=== PATIENT | female | born 1995 | race Caucasian/White ===

== ENCOUNTER 2020-11-12 18:15 | Inpatient (IN) | payer OTHER ==
[2020-11-12] MEDS ORDERED: CITRIC ACID/SODIUM CITRATE 30 ML UNIT-DOSE CUP PO ONE (19:09)
[2020-11-12 19:11] VITALS: BMI 28.3
[2020-11-12] MEDS ORDERED: ELECTROLYTE-148 SOLN 1,000 ML IV SCH (19:15)
[2020-11-12] MEDS ORDERED: MAGNESIUM 4GM/H20 - 4 GM/100 ML IVPB IVPB SCH (19:15)
[2020-11-12] MEDS ORDERED: MAGNESIUM SULFATE 20GM/500ML - 20 GM/500 ML INFUS.BAG ONE (19:48)
[2020-11-12 20:25] LABS: BASO % 2.1 % (0-2.0); EOS % 0.5 % (0-4.5); HEMATOCRIT 28.5 % (32.4-45.2); HEMOGLOBIN 9.2 GM/dL (10.7-15.3); LYMPH % 16.3 % (8-40); MCH 22.1 pg (25.7-33.7); MCHC 32.1 g/dl (32.0-36.0); MEAN CELL VOLUME 68.7 fl (80-96); MONO % 5.3 % (3.8-10.2); NEUT % 75.8 % (42.8-82.8); PLATELET COUNT 186 10^3/uL (134-434); RBC 4.15 M/mm3 (3.60-5.2); RDW 19.6 % (11.6-15.6); WHITE BLOOD COUNT 8.2 K/mm3 (4.0-10.0)
[2020-11-12] MEDS ORDERED: MAGNESIUM SULFATE 20GM/500ML - 20 GM/500 ML INFUS.BAG IV SCH (20:30)
[2020-11-12 20:44] LABS: CALCIUM 8.7 mg/dL (8.5-10.1)
[2020-11-12 20:45] LABS: BLOOD UREA NITROGEN 7.2 mg/dL (7-18); INR 0.83 (0.83-1.09); PROTHROMBIN TIME (PATIENT) 10.2 SEC (9.7-13.0)
[2020-11-12 20:48] LABS: ACTIVATED PTT 24.6 SECONDS (25.2-36.5); CREATININE 0.6 mg/dL (0.55-1.3)
[2020-11-12] MEDS ORDERED: IBUPROFEN 600 MG TABLET (FP) PO PRN ×2 (21:11→23:58)
[2020-11-12] MEDS ORDERED: ONDANSETRON 4 MG/2 ML VIAL IVPUSH PRN (21:11)
[2020-11-12] MEDS ORDERED: morphine SULFATE/PF 1 MG/2 ML (2cc Syringe - QUVA) EP ONE (21:11)
[2020-11-12] MEDS ORDERED: ACETAMINOPHEN 325 MG TABLET (FP) PO PRN ×2 (21:11→23:58)
[2020-11-12] MEDS ORDERED: SUCCINYLCHOLINE CHLORIDE 200 MG/10 ML SYRINGE ONE (21:16)
[2020-11-12] MEDS ORDERED: ceFAZolin SODIUM 1 GM VIAL ONE (21:16)
[2020-11-12] MEDS ORDERED: OXYTOCIN 10 UNIT/ML 10ML MDV ONE (21:16)
[2020-11-12] MEDS ORDERED: morphine SULFATE/Preservative Free 0.5 MG/ML (1cc Syringe) ONE (21:16)
[2020-11-12] MEDS ORDERED: PROPOFOL 20 ML ONE (21:17)
[2020-11-12] MEDS ORDERED: ONDANSETRON 4 MG/2 ML VIAL ONE (23:03)
[2020-11-12] MEDS ORDERED: KETOROLAC TROMETHAMINE 30 MG/1 ML VIAL ONE (23:17)
[2020-11-12] MEDS ORDERED: OXYTOCIN 20 UNITS in 0.9% NS 20 UNIT/1,000 ML INFUS.BAG IV SCH (23:45)
[2020-11-12] MEDS ORDERED: ONDANSETRON 4 MG/2 ML VIAL IVPB PRN (23:58)
[2020-11-12] MEDS ORDERED: IBUPROFEN 800 MG/8 ML IJ IVPB PRN (23:58)
[2020-11-12] MEDS ORDERED: oxyCODONE HCL 5 MG TABLET PO PRN (23:58)
[2020-11-12] MEDS ORDERED: ACETAMINOPHEN 1000 MG/100 ML VIAL (NON FORMULARY) IVPB PRN (23:58)
[2020-11-12] MEDS ORDERED: SIMETHICONE 80 MG TAB.CHEW (FP) PO PRN (23:58)
[2020-11-12] MEDS ORDERED: SENNOSIDES/DOCUSATE COMBO (SENNA PLUS) TABLET (UD) PO PRN (23:58)
[2020-11-13] MEDS ORDERED: MAGNESIUM SULFATE 20GM/500ML - 20 GM/500 ML INFUS.BAG IV SCH (00:15)
[2020-11-13] MEDS ORDERED: CEFAZOLIN 2 GM in DEXTROSE 5%-WATER - 50 ML IVPB SCH (02:00)
[2020-11-13] MEDS ORDERED: CEFAZOLIN 2 GM/D5W 2 GM/50 ML ML IVPB ONE (02:33)
[2020-11-13] MEDS ORDERED: MAGNESIUM SULFATE 20GM/500ML - 20 GM/500 ML INFUS.BAG ONE (05:19)
[2020-11-13] MEDS: CEFAZOLIN 2 GM in DEXTROSE 5%-WATER 100 ML IVPB SCH ×3 (10:15→20:23)
[2020-11-13] MEDS ORDERED: OXYTOCIN 20 UNITS in 0.9% NS 20 UNIT/1,000 ML INFUS.BAG IV ONE (14:32)
[2020-11-13] MEDS ORDERED: IBUPROFEN 800 MG/8 ML IJ IVPB ONE (19:27)
[2020-11-14] MEDS ORDERED: BISACODYL 10 MG SUPP.RECT RC PRN
[2020-11-14 06:52] LABS: BASO % 0.8 % (0-2.0); EOS % 0.8 % (0-4.5); HEMATOCRIT 25.6 % (32.4-45.2); HEMOGLOBIN 8.2 GM/dL (10.7-15.3); LYMPH % 20.6 % (8-40); MCH 22.1 pg (25.7-33.7); MCHC 31.9 g/dl (32.0-36.0); MEAN CELL VOLUME 69.2 fl (80-96); MEAN PLT VOLUME 10.6 fl (7.5-11.1); MONO % 5.5 % (3.8-10.2); NEUT % 72.3 % (42.8-82.8); PLATELET COUNT 213 10^3/uL (134-434); RDW 19.7 % (11.6-15.6); WHITE BLOOD COUNT 11.3 K/mm3 (4.0-10.0)
[2020-11-15] MEDS ORDERED: IBUPROFEN 600 MG TABLET (FP) PO PRN ×2 (09:43→09:59)
[2020-11-15 11:54] VITALS: BP 125/74; PULSE 76; TEMP 98.4
== END 2020-11-15 19:00 | disposition home or self-care (01) | DRG 371 ==
LOC: JLDR 18:15 → J3W 11-13 19:45
PROVIDERS: ADMIT Specialist; ATTEND Specialist
PROC: 10D00Z1 Extraction of Products of Conception, Low, Open Approach (ICD-10-PCS; principal; 2020-11-12)
DX: O14.94 Unspecified pre-eclampsia, complicating childbirth (principal); O62.0 Primary inadequate contractions; Z3A.39 39 weeks gestation of pregnancy; Z37.0 Single live birth
CPT/HCPCS: 36415; 80048; 82570; 83735; 84156; 85025; 85610; 85730; 86780; 86850; 86900; 86901; 88307-TC; C9803; U0003; U0005